=== PATIENT | male | born 1975 | race Two or more races ===

== ENCOUNTER 2025-03-02 10:17 | Outpatient (OUT) | payer BC, SELFPAY ==
--- NOTE | 2025-03-02 10:21 | ECG_ITS ---
The 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 Measurements Intervals [place] Rate: 61 P: 62 MD: 166 QRS: 39 QRSD: 97 T: 32 QT: 413 QTc: 419 Interpretive Statements SINUS RHYTHM Normal ECG Compared with the ECG of 04-04-2021 12:03, No significant changes Electronically Signed On 03-02-2025 18:44:18 EDT by GIOVANNI GALLAGHER M.D.
--- NOTE | 2025-03-02 11:34 | PM.PRESUREVA ---
History of Present Illness History of Present Illness Chief complaint: LEFT KIDNEY STONES Narrative: Patient presents for presurgical testing accompanied by his . Please see HPI from Dr. Osorio dated February 16, 2025. Review of Systems ROS Narrative Please see ROS from Dr. Osorio dated February 16, 2025. [facility] Medical History (Updated 03/02/25 @ 11:26 by María Elena Harris NP) Foot pain ?M79.673 - Pain in unspecified foot (ICD-10) Arthritis ?M19.90 - Unspecified osteoarthritis, unspecified site (ICD-10) Anxiety ?F41.9 - Anxiety disorder, unspecified (ICD-10) Migraine (1994) ?G43.909 - Migraine, unspecified, not intractable, without status migrainosus (ICD-10) Heartburn ?R12 - Heartburn (ICD-10) Hypertension (~2020) ?I10 - Essential (primary) hypertension (ICD-10) High cholesterol ?E78.00 - Pure hypercholesterolemia, unspecified (ICD-10) COVID-19 (2020) ?U07.1 - COVID-19 (ICD-10) Kidney stones ?N20.0 - Calculus of kidney (ICD-10) Surgical History (Updated 03/02/25 @ 11:25 by María Elena Harris NP) History of hernia repair (1998) ?Z98.890 - Other specified postprocedural states (ICD-10) ?Z87.19 - Personal history of other diseases of the digestive system (ICD-10) H/O chest tube placement (2020) ?Z98.890 - Other specified postprocedural states (ICD-10) History of colonoscopy ?Z98.890 - Other specified postprocedural states (ICD-10) S/P ureteral stent placement ?Z96.0 - Presence of urogenital implants (ICD-10) S/P cystoscopy ?Z98.890 - Other specified postprocedural states (ICD-10) History of cholecystectomy ?Z90.49 - Acquired absence of other specified parts of digestive tract (ICD-10) History of appendectomy ?Z90.49 - Acquired absence of other specified parts of digestive tract (ICD-10) Family History (Updated 03/02/25 @ 11:11 by María Elena Harris NP) Other Family history of diabetes mellitus Family history of hypertension Family history of stroke Social History (Updated 03/02/25 @ 11:03 by María Elena Harris NP) Within the past year, how often did you have a drink containing alcohol: never Score interpretation: A score less than 4 is consistent with normal alcohol consumption. Smoking status: Never smoker Non-prescribed substance use: denies use Previous occupational history: [employer] Highest level of school completed/degree received: high school graduate Meds Home Medications and Allergies Home Medications ?Medication ?Instructions ?Recorded ?Confirmed ?Type alprazolam 0.5 mg tablet 0.5 mg PO QID PRN anxiety 03/02/25 03/02/25 History aspirin 81 mg chewable tablet 1 tab PO DAILY 03/02/25 03/02/25 History atorvastatin 40 mg tablet 40 mg PO DAILY 03/02/25 03/02/25 History meloxicam 15 mg tablet 15 mg PO DAILY 03/02/25 03/02/25 History metoprolol tartrate 100 1 tab PO DAILY 03/02/25 03/02/25 History mg-hydrochlorothiazide 25 mg tablet potassium bicarbonate-citric acid 25 meq PO BID 03/02/25 03/02/25 History 25 mEq effervescent tablet (Effer-K) Allergies Allergy/AdvReac Type Severity Reaction Status Date / Time No Known Drug Allergies Allergy Verified 03/02/25 10:59 Exam Narrative Exam Narrative: Constitutional: Awake, alert, very pleasant, comfortable, well-appearing, nontoxic, interactive, vital signs as charted Head: Normocephalic, atraumatic Neck: Supple, normal appearance, normal range of motion, no meningeal signs, no lymphadenopathy Respiratory: No respiratory distress, breath sounds clear Cardiovascular: Regular rate and rhythm, strong and regular heart tones Abdomen: Nontender, normal bowel sounds, soft, no CVA tenderness Musculoskeletal: Normal gait, no swelling or edema Skin: No rashes or induration, no lesions, only visible skin inspected Neuro: No neurological deficits, normal sensation Psychiatric: Oriented ?3, normal affect Assessment and Plan Assessment and Plan (1) Kidney stones: Plan Left ESWL scheduled with Dr. Osorio March 08, 2025.
[2025-03-02 13:41] LABS: Anion Gap 12.7; Carbon Dioxide 29.2 mmol/L (21.0-32.0); Chloride 100 mmol/L (98-107); Estimated GFR (African America >60 (>=60 mL/min/1.73m^2); Estimated GFR (Non-African Ame >60 (>=60 mL/min/1.73m^2); Glucose 91 mg/dL (74-106); Potassium 3.9 mmol/L (3.5-5.1); Sodium 138 mmol/L (136-145)
[2025-03-02 13:49] LABS: Basophils Percent Auto 0.4 % (0.2-2.0); Eosinophils Absolute Auto 0.2 10^3/uL (0.0-0.7); Eosinophils Percent Auto 2.3 % (0.9-7.0); Hematocrit 43.8 % (42.0-54.0); Hemoglobin 14.8 g/dL (14.0-18.0); Immature Granulocytes Abs Auto 0.03 10^3/uL (0.00-0.03); Immature Granulocytes Pct Auto 0.3 % (0.0-0.5); Lymphocytes Absolute Auto 2.5 10^3/uL (1.2-3.8); Lymphocytes Percent Auto 26.3 % (20.5-60.0); Mean Corpuscular HGB Conc 33.8 g/dL (29.9-35.2); Mean Corpuscular Volume 85.9 fL (80.0-94.0); Mean Platelet Volume 10.6 fL (9.5-13.5); Monocytes Absolute Auto 0.8 10^3/uL (0.3-0.8); Monocytes Percent Auto 8.2 % (1.7-12.0); Neutrophils Percent Auto 62.5 % (43.0-75.0); Platelet Count 261 10^3/uL (150-450); Red Cell Distribution Width 13.2 % (11.0-15.0); White Blood Count 9.5 10^3/uL (4.0-11.0)
[2025-03-02 14:43] LABS: INR 1.05; Partial Thromboplastin Time 36.3 sec (22.3-36.2); Prothrombin Time 11.1 sec (9.0-11.6)
== END 2025-03-02 10:18 | disposition home or self-care (01) ==
LOC: PST 10:17
PROVIDERS: PCP Internal Medicine; Visit Provider Urology
DX: Z01.810 Encounter for preprocedural cardiovascular examination (principal); Z01.812 Encounter for preprocedural laboratory examination; Z01.818 Encounter for other preprocedural examination; N20.0 Calculus of kidney
CPT/HCPCS: 36415; 80048; 85025; 85610; 85730; 93005; G0463

== ENCOUNTER 2025-03-08 06:22 | Day surgery (SDC) | payer BC, SELFPAY ==
[2025-03-02 11:22] VITALS: BP 156/99; PULSE 64; TEMP 36.4; O2SAT 99; BMI 26.5
[2025-03-08] VITALS (8 sets, daily range): BP systolic 110–147; BP diastolic 73–109; PULSE 66–82; TEMP 36.1–36.4; O2SAT 94–98; BMI 26.2
--- NOTE | 2025-03-08 06:45 | XR_ITS ---
The [address] [address] Patient Name: IVANA GAMBLE MRN: [id number] date: 1975 Sex: M Assigned Patient Location: [facility] [[email or web address] Current Patient Location: [facility] [[email or web address]] Accession/Order Number: [id number] Exam Date: 03/08/2025 07:41 Report Date: 03/08/2025 07:42 At the request of: LAZ IBARRA MD Procedure: XR abdomen 1V XR abdomen 1V 03/08/2025 6:39 AM SIGNS AND SYMPTOMS: ^kidney stones \S.br\ PROTOCOL: Frontal radiographs of the abdomen and pelvis COMPARISON: 07/07/2019 FINDINGS: There is a 6 mm stone in the left renal collecting system similar to the prior exam. There is evidence of prior cholecystectomy. No ureteral or bladder stones are visualized. Mild degenerative changes are noted in the lumbar spine. XR/XR abdomen 1V IMPRESSION: There is a 6 mm stone in the left renal collecting system similar to the prior exam. Impression dictated by: Randolph Urrutia M.D. 03/08/2025 7:42 AM Dictation Location: [place] [address] Electronically authenticated by: [id number] Y Date: 03/08/2025 07:42
[2025-03-08] MEDS: LACTATED RINGER'S SOLUTION 1,000 ML 50 ML IV (07:12)
[2025-03-08] MEDS: CEFAZOLIN SODIUM 2 GM/50 ML D5W PREMIX IV (08:00)
--- NOTE | 2025-03-08 08:31 | PM.URSON ---
Urology Surgery Operative Note Operative Note Procedure Date: 03/08/25 Time Out Performed: yes Pre-op Diagnosis: 1. Left nephrolithiasis. 2. Microhematuria. Post-op Diagnosis: same as pre-op Procedures performed: 1. Left ESWL. 2. Cystoscopy. Anesthesia: General-LMA Primary Surgeon: Mamadou Osorio Complications: None Estimated blood loss (mL): 0 Findings: Left renal calculus. No bladder tumors. Specimens: None Drains: None Indications for Procedures: This gentleman has a 7 mm left renal calculus that is nonobstructing. He also has chronic microhematuria. He now presents for left ESWL and cystoscopy. He has signed an informed consent after all risks were explained. Some of these risks include bleeding, perinephric hematoma, infection and anesthesia to name a few. Detailed description of Procedure: The patient was brought to the Operating Room and placed on Siemens electromagnetic lithotripsy treatment table in the supine position. SCDs were placed on their lower extremities and turned on and functioning during the entire case. Timeout was done by all parties in the room. We all agreed upon the patient's identification and the planned procedures for this patient. General Anesthesia was then administered via LMA. Treatment head was then brought to the patient's correct side. While using flourscopy the stone was identified and lined up into the crosshairs. We also sterilely prepped and draped his genitalia. I started by passing a flexible cystoscope per urethra and into the bladder. Anterior urethra was normal. Prostatic urethra revealed bilobar hypertrophy. Careful panendoscopy in the bladder showed no evidence of any tumors, stones or lesions. No new findings were noted on retroflex. Clear urine was seen effluxing from the ureters. The scope was then removed. We then began applying shocks to the left renal stone at power level 2.0 and increased to a maximum power level 3.5. Intermittent fluoroscopy revealed that the stone fairly quickly began to fragment. After 800 shocks over 50% of the stone was fragmented. We applied a total of 1500 shocks. Our last fluoroscopic image revealed no evidence of formed stone remaining. The procedure was then terminated. He was then transferred to [facility] bed and wheeled to PACU in stable condition.
--- NOTE | 2025-03-08 08:58 | PC.NURSE ---
pink area with abrasions noted on left flank; no drainage noted
--- NOTE | 2025-03-08 09:55 | PC.NURSE ---
Up to bathroom and voided bloody urine without difficulty; urine strained and negative for calculi.
== END 2025-03-08 10:00 | disposition home or self-care (01) ==
PROVIDERS: PCP Internal Medicine; Visit Provider Urology
PROC: (CPT 00873; principal; 2025-03-08 08:00)
DX: N20.0 Calculus of kidney (principal); E78.5 Hyperlipidemia, unspecified; I10 Essential (primary) hypertension; R31.29 Other microscopic hematuria; Z90.49 Acquired absence of other specified parts of digestive tract; K21.9 Gastro-esophageal reflux disease without esophagitis
CPT/HCPCS: 00873; 00910; 50590; 52000; 36415; 74018; J0690; J1100; J1885; J2250; J2405; J2704; J3010

== ENCOUNTER 2025-08-31 10:05 | Outpatient (OUT) | payer BC, SELFPAY ==
--- OUTSIDE RECORDS SUMMARY | 2025-08-31 10:11 | XMS_ITS | Clinical Summary ---
Author Organization [facility] Address [address], [address] [place] [address] Care Team Providers Care Laboratory Asst Name Role Phone Jose Sharp MD Primary Care Provider [phone] Allergies No known active allergies Social History Tobacco UseTypesPacks/DayYears UsedDateSmoking Tobacco: NeverSex and Gender InformationValueDate RecordedSex Assigned at BirthNot on fileLegal SexMale 06/25/2021 10:27 PM EDTGender IdentityNot on fileSexual OrientationNot on file Last Filed Vital Signs Vital SignReadingTime TakenCommentsBlood Caarjapv766/7309 1:00 AM EDT Ioulr7699 1:00 AM TGIVqosycckqfh98.1 ??C (97 ??F)06/25/2021 10:37 PM EDT Respiratory Njkp7383 1:00 AM EDTOxygen Ywdtknatzk22%06/26/2021 1:00 AM EDTInhaled Oxygen Concentration--Weight--Height--Body Mass Index-- Plan of Treatment Not on file Insurance Care Teams Team MemberRelationshipSpecialtyStart DateEnd Date Jose Sharp MD [address] [facility] [address] [place] [address] PCP - GeneralInternal Medicine06/26/21
--- OUTSIDE RECORDS SUMMARY | 2025-08-31 10:11 | XMS_ITS | Clinical Summary ---
Author Organization [facility] Address [address] [place] [address] Care Team Providers Care Seismic Survey Assistant Name Role Phone Jose Sharp MD Unavailable [phone] Jose Sharp MD Primary Care Provider [phone] Allergies No known active allergies Medications MedicationSigDispense QuantityRefillsLast FilledStart DateEnd DateStatus Effer-K 25 MEQ effervescent tablet Take 25 mEq by mouth in the morning and 25 mEq before bedtime.4Active atorvastatin (Lipitor) 40 MG tablet Indications:Peripheral vascular disease,Mixed hyperlipidemiaTAKE 1 TABLET BY MOUTH EVERY DAY 100 tablet 5Active meloxicam (Mobic) 15 MG tablet Indications:Primary osteoarthritis involving multiple jointsTake 1 tablet (15 mg) by mouth Daily 30 tablet 5Active ALPRAZolam (Xanax) 0.5 MG tablet Indications:Anxiety,Anxiety about healthTake 0.5-1 tablets (0.25-0.5 mg) by mouth every 6 (six) hours if needed for anxiety 30 tablet 5Active metoprolol-hydroCHLOROthiazide (Lopressor HCT) 100-25 MG tablet Indications:Essential hypertensionTake 1 tablet by mouth in the morning. 100 tablet 5Active aspirin (Aspirin Low Dose) 81 MG chewable tablet Indications:Essential hypertensionChew 1 tablet (81 mg) Daily 100 tablet 5Active clotrimazole (Lotrimin) 1 % cream Indications:Tinea pedis, unspecified lateralityApply topically in the morning and before bedtime. 15 g 501/6Active Active Problems ProblemNoted DateDiagnosed DatePrimary osteoarthritis involving multiple joints 03/23/2025rthritis of first metatarsophalangeal (MTP) joint of right foot 08/18/2024cute right-sided low back pain with right-sided gltutlaa76/24/2023 Anxiety about xfkqxl5906/17/2023trial septal defect within oval fossa (HHS-HCC) 06/17/2023ell's palsy06/17/2023Headache, uobvbygxnee04/24/2023 Gisuaurnvvmhnhvcasqd44/24/5458Jhinuuzukqitdp24/24/2023Impaired fasting glucose 06/17/2023Internal zqjaaxxyiga82/24/2797Nrcnwsltmnfd12/24/5181Hppmyogk21/24/2023 Migraine without aura and without status migrainosus, not bmgozuvwzhz40/24/2023 Bjqvzpisxpcvskx47/24/2023OSA (obstructive sleep apnea)06/17/2023Other chronic pain06/17/2023anic /24/2023eripheral vascular owafdyk2506/17/2023ost- viral hxsjvoho42/24/2023Sequelae of other specified infectious and parasitic tcsjzrno58/24/2023Steatosis, liver06/17/2023White matter sihoyul0406/17/2023 Essential mrcdtbawmmmn31/23/2023Tension vwplyewxaoda30/27/2021 Resolved Problems ProblemNoted DateDiagnosed DateResolved DateHypertensive hrpoycq3906/07/2021 08/04/2024 Encounters DateTypeDepartmentCare HcgsBvrlrrhtzaa60/10/2025 11:00 AM EDTTreatment [facility] [address] [facility] [address] [place] [address] Maci Pike, PT Low back pain, unspecified back pain laterality, unspecified chronicity, unspecified whether sciatica present (Primary Dx)08/03/2025amboo flowsheet [facility] [address] [facility] [address] [place] [address] Maci Pike, PT 08/03/20257226Nytvxy33/30/2025Telephone [facility] [address] [facility] [address] [place] [address] Horacio Lewis MD 07/23/2025Refill [facility] [address] [place] [address] Jose Sharp MD Anxiety; Anxiety about mdorwr7607/23/2025bstract [facility] [address] [place] [address] Jose Sharp MD 07/20/2025 10:00 AM EDTOffice Visit [facility] [address] [place] [address] Jose Sharp MD 07/20/2025amboo flowsheet [facility] [address] [place] [address] Jose Sharp MD 07/20/20257473Mtjoom36/15/2025Orders Only [facility] [address] [place] [address] Jose Sharp MD Special screening for malignant neoplasm of prostate; Essential hypertension ; Mixed riuclmwzehqfis72/12/2025 9:30 AM EDTEvaluation [facility] [address] [place] [address] Maci Pike, PT Low back pain, unspecified back pain laterality, unspecified chronicity, unspecified whether sciatica present (Primary Dx)07/06/2025Plan of Care Documentation [facility] [address] [place] [address] 07/06/2025amboo flowsheet [facility] [address] [place] [address] Maci Pike, PT 07/06/20256315Fbecwd02/25/2025Telephone [facility] [address] [place] [address] Maci Pike, PT re: PT Eval Telephone [facility] [address] [facility] [address] [place] [phone] Jose Sharp MD from Last 3 Months Family History Medical HistoryRelationNameCommentsHypertensionMotherStrokeMotherRelationName StatusCommentsFatherDeceasedMotherDeceased Social History Tobacco UseTypesPacks/DayYears UsedDateSmoking Tobacco: NeverSmokeless Tobacco: Never Tobacco Cessation:Counseling Given: Not Answered Alcohol UseStandard Drinks/WeekCommentsNot Currently0 (1 standard drink = 0.6 oz pure alcohol)caffeine: sodaPHQ-2AnswerDate RecordedPatient Health Questionnaire- 2 Sxkpq864Sex and Gender InformationValueDate RecordedSex Assigned at BirthNot on fileLegal HhySiry3501/06/2023 7:12 PM EDTGender IdentityNot on file Sexual OrientationNot on file Last Filed Vital Signs Vital SignReadingTime TakenCommentsBlood Wumtajun546/7209 9:49 AM EDT Wygsd186407/20/2025 9:49 AM EDTTemperature--Respiratory Dmfk6043 11:30 AM EDTOxygen Dmriboqynu93%07/20/2025 9:49 AM EDTInhaled Oxygen Concentration-- Dutlko74.1 kg (170 lb)07/20/2025 9:49 AM GDMEgtwdt955.3 cm (5' 9 )07/20/2025 9:49 AM EDTBody Mass Index25. 9:49 AM EDT Plan of Treatment DateTypeDepartmentCare Team (Latest Contact Info)Cmanhrbaird13/20/2026 10:15 AM EDTOffice Visit [facility] [address] [facility] [address] [place] [phone] Jose Sharp MD [address] [facility] [address] [place] [phone] Health MaintenanceDue DateLast DoneCommentsCT Pqracuacmjby1976FIT-DNA 1975FIT1975FOBT1975 4997Ulnmyddqmdpfi1976Pneumococcal Vaccine: Pediatrics (0 to 5 Years) and At-Risk Patients (6 to 64 Years) (1 of 2 - PCV)1995COVID-19 Vaccine (1 - season)2025Influenza Vaccine (#1)4741Dhfwehldlkv96/03/15355110/27/2022, 08/27/2023olorectal Cancer Farjfkydj66/03/2033 Procedures Procedure NamePriorityDate/TimeAssociated DiagnosisCommentsCOMPREHENSIVE METABOLIC NGMXIOxakern94/19/2025 9:40 AM EDT Essential hypertension LIPID CNOPZLxaoeav28/19/2025 9:40 AM EDT Essential hypertension Mixed hyperlipidemia PSA, BTOTFYghfhku82/19/2025 9:40 AM EDT Special screening for malignant neoplasm of prostate HM ZPZOTWFFFZOAjrgjfp02/03/2023from Last 3 Months or Most Recently Relevant to Health Maintenance Results * PSA (07/13/2025 9:40 AM EDT)ComponentValueRef RangeTest MethodAnalysis Time Performed AtPathologist SignaturePSA, TOTAL1.31< OR = 4.00 ng/mLQUESTComment: The total PSA value from this assay system is standardized against the WHO standard. The test result will be approximately 20% lower when compared to the equimolar-standardized total PSA ([place]). Comparison of serial PSA results should be interpreted with this fact in mind. This test was performed using the Siemens chemiluminescent method. Values obtained from different assay methods cannot be used interchangeably. PSA levels, regardless of value, should not be interpreted as absolute evidence of the presence or absence of disease. Specimen (Source)Anatomical Location / LateralityCollection Method / Volume Collection TimeReceived TimeBloodVenous blood specimen / Kpeqato1207/13/2025 9:40 AM EDT07/13/2025 9:41 AM EDT Narrative [facility] - 07/14/2025 3:20 AM EDT FASTING:YES FASTING: YES Resulting Agency Comment Performing Organization Information ?Site ID: QPT ?Name: [facility] ?Address: [address] [place] [address], [address] [place] [phone] ?Director: Santhosh Chase MD Authorizing ProviderResult TypeResult Candelario MONTOYA BLOOD ORDERABLESFinal ResultPerforming OrganizationAddressCity/State/ZIP CodePhone Number [facility] * (ABNORMAL) Lipid panel (07/13/2025 9:40 AM EDT)ComponentValueRef RangeTest MethodAnalysis TimePerformed AtPathologist SignatureCHOLESTEROL, JUMFR280<200 mg/dLQUESTHDL RIZAOUWXWMT07(L)> OR = 40 mg/fTKSOUZJXNXVGOTMNNJS145(H)<150 mg/dLQUESTLDL LUVJKTDYKKD26vh/dL (calc)QUESTComment: Reference range: <100 Desirable range <100 mg/dL for primary prevention; <70 mg/dL for patients with CHD or diabetic patients with > or = 2 CHD risk factors. LDL-C is now calculated using the Nikki calculation, which is a validated novel method providing better accuracy than the Friedewald equation in the estimation of LDL-C. Jose CADET et al. NIKOLAI. 2013;310(19): 0488-4732 (http://education.[employer]/faq/XDO777) CHOL/HDLC RATIO3.8<5.0 (calc)QUESTNON HDL DEEPMXYSSPY80<130 mg/dL (calc)[facility] Comment: For patients with diabetes plus 1 major ASCVD risk factor, treating to a non-HDL-C goal of <100 mg/dL (LDL-C of <70 mg/dL) is considered a therapeutic option. Specimen (Source)Anatomical Location / LateralityCollection Method / Volume Collection TimeReceived TimeBloodVenous blood specimen / Bzpzwjr2507/13/2025 9:40 AM EDT07/13/2025 9:41 AM EDT Narrative [facility] - 07/14/2025 3:20 AM EDT FASTING:YES FASTING: YES Resulting Agency Comment Performing Organization Information ?Site ID: QPT ?Name: [facility] ?Address: [address] [place] [address], [address] [place] [phone] ?Director: Santhosh Chase MD Authorizing ProviderResult TypeResult Candelario MONTOYA BLOOD ORDERABLESFinal ResultPerforming OrganizationAddressCity/State/ZIP CodePhone Number [facility] * (ABNORMAL) Comprehensive metabolic panel (07/13/2025 9:40 AM EDT)Component ValueRef RangeTest MethodAnalysis TimePerformed AtPathologist SignatureGlucose 101(H)65 - 99 mg/dLQUESTComment: ? Fasting reference interval For someone without known diabetes, a glucose value between 100 and 125 mg/dL is consistent with prediabetes and should be confirmed with a follow-up test. BZB459 - 25 mg/dLQUESTCreatinine0.620.60 - 1.29 mg/mGWSHFTZZOT013> OR = 60 mL/min/1.10o6RHUULKNB/CREATININE RATIOSEE NOTE: (calc)QUESTComment: ?? Not Reported: BUN and Creatinine are within ?? reference range. ? Mwqvsm701780 - 146 mmol/LQUESTPotassium, Bld3.83.5 - 5.3 mmol/KBQZAQTgfqznwj609 98 - 110 mmol/LQUESTCarbon Evyvjpf8931 - 32 mmol/LQUESTCalcium8.98.6 - 10.3 mg/dLQUESTPROTEIN, TOTAL7.06.1 - 8.1 g/dLQUESTALBUMIN4.93.6 - 5.1 g/dLQUEST GLOBULIN2.11.9 - 3.7 g/dL (calc)QUESTALBUMIN/GLOBULIN RATIO2.31.0 - 2.5 (calc) QUESTBILIRUBIN, TOTAL0.70.2 - 1.2 mg/dLQUESTALKALINE TQHFPBYRMWH4504 - 130 U/L ASMHPVSB0098 - 40 U/JJYWKZFMG258 - 46 U/LQUESTSpecimen (Source)Anatomical Location / LateralityCollection Method / VolumeCollection TimeReceived TimeBlood Venous blood specimen / Kjghswt1807/13/2025 9:40 AM EDT07/13/2025 9:41 AM EDT Narrative [facility] - 07/14/2025 3:20 AM EDT FASTING:YES FASTING: YES Resulting Agency Comment Performing Organization Information ?Site ID: QPT ?Name: [facility] ?Address: [address] [place] [address], [address] [place] [phone] ?Director: Santhosh Chase MD Authorizing ProviderResult TypeResult StatusDairis Sharp MDLAB BLOOD ORDERABLESFinal ResultPerforming OrganizationAddressCity/State/ZIP CodePhone Number [facility] * (ABNORMAL) Colonoscopy (08/27/2023)Anatomical RegionLateralityModalityOther Specimen (Source)Anatomical Location / LateralityCollection Method / Volume Collection TimeReceived Time08/27/2023 Narrative Authorizing ProviderResult TypeResult StatusJose Sharp MDHEALTH MAINTENANCE Final Result from Last 3 Months or Most Recently Relevant to Health Maintenance Insurance Care Teams Team MemberRelationshipSpecialtyStart DateEnd Date Jose Sharp MD [address] [place] [address] PCP - [facility]01/23/21 Jose Sharp MD [address] [place] [address] PCP - GeneralInternal Medicine03/02/23
--- OUTSIDE RECORDS SUMMARY | 2025-08-31 10:11 | XMS_ITS | Clinical Summary ---
Author Organization [facility] Address [address] [place] [address] Care Team Providers Care Microbiology Coordinator Name Role Phone Unavailable Primary Care Provider Unavailabl e Social History Tobacco UseTypesPacks/DayYears UsedDateSmoking Tobacco: Never AssessedUT Safety & EnvironmentAnswerDate RecordedFear of Current or Ex-PartnerNot on file 12/16/2023Emotionally AbusedNot on file12/16/2023hysically AbusedNot on file 12/16/2023Sexually AbusedNot on file4Physically or Sexually AbusedNot on file12/16/2023Sex and Gender InformationValueDate RecordedSex Assigned at BirthNot on fileLegal PhkRrcs6104/23/2022 12:38 AM EDTGender IdentityNot on file Sexual OrientationNot on file Plan of Treatment Health MaintenanceDue DateLast DoneCommentsCT Mjsmynncpmnl1976Colonoscopy 1976Colorectal Cancer Lgzxrzyeo1976FIT-DNA1976FIT1976 FOBT1976 7599Bpmjkifjsmisv1976Depression Snuqbivua52/16/1988Hepatitis B Vaccines (1 of 3 - 19+ 3-dose series)1995Adult Jlahfxf3307/10/1998Influenza Vaccine (#1)2025Zoster Vaccines (1 of 2)2026HIB VaccinesAged OutNo longer eligible based on patient's age to complete this topicHPV VaccinesAged OutNo longer eligible based on patient's age to complete this topicIPV Vaccines Aged OutNo longer eligible based on patient's age to complete this topic Meningococcal B VaccineAged OutNo longer eligible based on patient's age to complete this topicMeningococcal VaccineAged OutNo longer eligible based on patient's age to complete this topicPneumococcal Vaccine: Pediatrics (0 to 5 Years) and At-Risk Patients (6 to 64 Years)Aged OutNo longer eligible based on patient's age to complete this topicRotavirus VaccinesAged OutNo longer eligible based on patient's age to complete this topic Insurance
--- OUTSIDE RECORDS SUMMARY | 2025-08-31 10:11 | XMS_ITS | Clinical Summary ---
Author Organization Spirations tem Address [id number] [address] [place] [address] Care Team Providers Care Sql Programmer Name Role Phone Jose Sharp MD Primary Care Provider [phone] Allergies No known active allergies Medications MedicationSigDispense QuantityRefillsLast FilledStart DateEnd DateStatus naproxen (NAPROSYN) 500 mg tablet Take 500 mg by mouth 2 (two) times a day with meals.Active hyoscyamine (LEVSIN) 0.125 mg SL tablet Take 0.125 mg by mouth every 4 (four) hours as needed for cramping.Active metoprolol ta-hydroCHLOROthiaz (LOPRESSOR HCT) 100-25 mg per tablet Take 1 tablet by mouth in the morning.Active atorvastatin (LIPITOR) 40 mg tablet Take 40 mg by mouth in the morning.Active aspirin 81 mg Take 81 mg by mouth in the morning.Active carvediloL (COREG) 25 mg tablet Take 1 tablet (25 mg total) by mouth 2 (two) times a day. 60 tablet 06/07/2021ctive atorvastatin (LIPITOR) 40 mg tablet Take 1 tablet (40 mg total) by mouth daily. 30 tablet 06/07/2021ctive aspirin 81 mg chewable tablet Chew 1 tablet (81 mg total) and swallow daily. 30 tablet 06/07/2021ctive lisinopriL (PRINIVIL,ZESTRIL) 20 mg tablet Take 20 mg by mouth daily. Active cloNIDine (CATAPRES) 0.2 mg tablet Take 0.2 mg by mouth as needed for high blood pressure.Active Active Problems ProblemNoted DateDiagnosed DateHypertensive lkdwdqs4706/07/2021Tension szmvmegcxgmw37/27/2021 Immunizations No known immunizations Family History Medical HistoryRelationNameCommentsDiabetesMotherHypertensionMotherStrokeMother RelationNameStatusCommentsFatherDeceasedCARDIOMEGALYMotherDeceased Social History Tobacco UseTypesPacks/DayYears UsedDateSmoking Tobacco: NeverSmokeless Tobacco: Never Tobacco Cessation:Counseling Given: No Alcohol UseStandard Drinks/WeekCommentsYes0 (1 standard drink = 0.6 oz pure alcohol)rareSocial Connection and Isolation PanelAnswerDate RecordedIn a typical week, how many times do you talk on the phone with family, friends, or neighbors?More than three times a week04/20/2021How often do you get together with friends or relatives?More than three times a week04/20/2021How often do you attend tenriism or faith services?Never04/20/2021o you belong to any clubs or organizations such as tenriism groups, unions, fraternal or athletic groups, or school groups?No04/20/2021How often do you attend meetings of the clubs or organizations you belong to?Never04/20/2021re you , , , , never , or living with a partner?Broiwkz2704/20/2021UDIT-C AnswerDate RecordedQ1: How often do you have a drink containing alcohol?Monthly or less04/20/2021Q2: How many drinks containing alcohol do you have on a typical day when you are drinking?1 or Q3: How often do you have six or more drinks on one occasion?Never04/20/2021Overall Financial Resource Strain (CARDIA) AnswerDate RecordedHow hard is it for you to pay for the very basics like food, housing, medical care, and heating?Not hard at all04/20/2021HQ-2AnswerDate RecordedTotal [facility]264[facility] [place] [facility] - Occupational Stress QuestionnaireAnswerDate RecordedDo you feel stress - tense, restless, nervous, or anxious, or unable to sleep at night because yourmind is troubled all the time - these days?Not at all04/20/2021xercise Vital SignAnswer Date RecordedOn average, how many days per week do you engage in moderate to strenuous exercise (like a brisk walk)?5 days04/20/2021On average, how many minutes do you engage in exercise at this level?60 min04/20/2021RAPARE - TransportationAnswerDate RecordedIn the past 12 months, has lack of transportation kept you from medical appointments or from getting medications?No 04/20/2021In the past 12 months, has lack of transportation kept you from meetings, work, or from getting things needed for daily living?No04/20/2021 ChildcareAnswerDate RecordedDo problems getting child development assistant make it difficult for you to work or study?No04/20/2021mploymentAnswerDate RecordedDo you need help finding a local career center and/or a training program?No04/20/2021urpose - LifeAnswerDate RecordedPurpose and direction in scwzZomsjif86/11/2021ex and Gender InformationValueDate RecordedSex Assigned at BirthNot on fileLegal Sex Male04/19/2021 5:57 PM EDTGender IdentityNot on fileSexual OrientationNot on file Last Filed Vital Signs Vital SignReadingTime TakenCommentsBlood Eqbkotzt494/4095307/04/2022 8:43 PM EDT Izchz758507/04/2022 8:43 PM ACDLelruftwcym38.9 ??C (98.4 ??F)07/04/2022 7:25 PM EDTRespiratory Cgdj3969 8:43 PM EDTOxygen Xydoaebpiy21%07/04/2022 8:43 PM EDTInhaled Oxygen Concentration--Pmmede52.8 kg (165 lb)07/04/2022 7:25 PM EDT Mqlyni486.2 cm (5' 7 )07/04/2022 7:25 PM EDTBody Mass Index25.8407/04/2022 7:25 PM EDT Plan of Treatment Health MaintenanceDue DateLast DoneCommentsDepression Mqpkkmwui73/16/1988Tobacco Lcvfbfnea47/16/1988Adult BMI Wqkluyrdg57/16/1994DTaP,Tdap and Td Vaccines (1 - Tdap)1995Influenza Eqjmjlw0506/25/2025 Medical Devices Not on file Insurance Advance Directives * Full Code (Latest Code Status on File) Date ActivatedDate InactivatedComments06/07/2021 12:05 PM06/07/2021 3:40 PM * Full Code Date ActivatedDate InactivatedComments04/20/2021 12:58 AM04/26/2021 9:26 PM Care Teams Team MemberRelationshipSpecialtyStart DateEnd Date Jose Sharp MD [address] [facility], [facility] [address] [place] [id number] PCP - GeneralInternal Medicine04/19/21
--- NOTE | 2025-08-31 10:13 | XR_ITS ---
The [address] [address] Patient Name: IVANA GAMBLE MRN: [id number] date: 1975 Sex: M Assigned Patient Location: RAD Current Patient Location: RAD Accession/Order Number: [id number] Exam Date: 08/31/2025 10:15 Report Date: 08/31/2025 10:47 At the request of: LAZ IBARRA MD Procedure: XR abdomen 1V SINGLE VIEW ABDOMEN COMPARISON: 03/08/2025 CLINICAL DATA: Follow-up of kidney stones. Supine views of the abdomen and pelvis were obtained. There is air and stool within the colon from the cecum through the splenic flexure. There are no dilated small bowel loops. The kidneys are partially obscured. The radiopaque stone seen at the left kidney at the time of the prior is no longer identified. No new renal or ureteral stones are noted. There are no soft tissue masses. There is subtle levoscoliotic curvature and mild degenerative change at the spine. XR/XR abdomen 1V IMPRESSION: NO RESIDUAL RADIOPAQUE STONES. Impression dictated by: Ashley Gonzalez M.D. 08/31/2025 10:47 AM Dictation Location: [place] [address] Electronically authenticated by: [id number] Date: 08/31/2025 10:47
== END 2025-08-31 10:06 | disposition home or self-care (01) ==
LOC: RAD 10:07
PROVIDERS: PCP Internal Medicine; Visit Provider Urology
DX: N20.0 Calculus of kidney (principal)
CPT/HCPCS: 74018

== ENCOUNTER 2025-10-20 11:34 | Emergency (ER) | payer BC, SELFPAY ==
--- OUTSIDE RECORDS SUMMARY | 2025-10-18 20:25 | XMS_ITS | Encounter Summary ---
Author Organization [facility] tem Address [id number] [place] [address] Care Team Providers Care Wire Wrapper Machine Operator Name Role Phone Jose Sharp MD Primary Care Provider [phone] Reason for Visit * ReasonCommentsLeg Pain Encounter Details DateTypeDepartmentCare Team (Latest Contact Info)Rqnbafmqgoo78/25/2025 8:25 PM EST - 10/18/2025 10:39 PM [facility] - Emergency [address] [place] [id number] Carl Carrillo MD [address] [place] [address] Sciatica, unspecified laterality (Primary Dx) Discharge Disposition: Home Social History Tobacco UseTypesPacks/DayYears UsedDateSmoking Tobacco: NeverSmokeless Tobacco: NeverAlcohol UseStandard Drinks/WeekCommentsYes0 (1 standard drink = 0.6 oz pure alcohol)rareSocial Connection and Isolation PanelAnswerDate RecordedIn a typical week, how many times do you talk on the phone with family, friends, or neighbors?More than three times a week04/20/2021How often do you get together with friends or relatives?More than three times a week04/20/2021How often do you attend temple or adventism services?Never1Do you belong to any clubs or organizations such as temple groups, unions, fraternal or athletic groups, or school groups?No04/20/2021How often do you attend meetings of the clubs or organizations you belong to?Never04/20/2021re you , , , , never , or living with a partner?Dnbrljz7304/20/2021UDIT-C AnswerDate RecordedQ1: How often do you have [...] care, and heating?Not hard at all04/20/2021HQ-2AnswerDate RecordedTotal Gfvso893Finst. [facility] [place] of [facility] - Occupational Stress QuestionnaireAnswerDate [...] daily living?No04/20/2021 ChildcareAnswerDate RecordedDo problems getting child care centre director make it difficult for you to work or study?No04/20/2021mploymentAnswerDate RecordedDo you need help finding a local career center and/or a training program?No04/20/2021Hunger ScreeningAnswerDate RecordedWithin the past 12 months we worried whether our food would run out before we got money to buy more.Never True10/18/2025Within the past 12 months the food we bought just didn't last and we didn't have money to get more.Never True10/18/2025Purpose - LifeAnswerDate RecordedPurpose and direction in pisdTmvleji10/11/2021ex and Gender InformationValueDate Recorded Sex Assigned at BirthNot on fileLegal CehFocb9404/19/2021 5:57 PM EDTGender IdentityNot on fileSexual OrientationNot on filedocumented as of this encounter Last Filed Vital Signs Vital SignReadingTime TakenCommentsBlood Ufbymtee883/6610/18/2025 9:23 PM EST Wmxtc900010/18/2025 10:00 PM UNJIfsrhsoiwev66.6 ??C (97.9 ??F)10/18/2025 8:28 PM ESTRespiratory Pflj444012/19/2024 10:00 PM ESTOxygen Mcquynewdx58%10/18/2025 10:00 PM ESTInhaled Oxygen Concentration--Nqwxyz82.8 kg (165 lb)10/18/2025 8:28 PM EST Khemcz616.3 cm (5' 9 )10/18/2025 8:28 PM ESTBody Mass Index24.37112/19/2024 8:28 PM ESTdocumented in this encounter Functional Status * Airway/Breathing (Pre-Arrival)QuestionAnswerDate of AssessmentAuthorBreathing HdwgogDiajteepeup08/25/2025 8:25 PM Laurence Barajas RN * Vital SignsQuestionAnswerDate of StqjjcfuwmLlqmupJlzlo0393/25/2025 10:00 PM Laurence Barajas RNResp16112/19/2024 10:00 PM Laurence Barajas, TABATHApO2 9410/18/2025 10:00 PM Laurence Barajas RN * ED Hunger ScreeningQuestionAnswerDate of AssessmentAuthorWithin the past 12 months the food we bought just didn't last and we didn't have money to get more.Never True10/18/2025 8:27 PM Laurence Barajas RNWithin the past 12 months we worried whether our food would run out before we got money to buy more.Never True10/18/2025 8:27 PM Laurence Barajas RN * BEE (kcal)AnswerDate of RkzpzqymibDrdumi426848/25/2025 8:28 PM Laurence Barajas RN * Pain AssessmentQuestionAnswerDate of AssessmentAuthorPain Intervention(s) Medication (See MAR)10/18/2025 9:00 PM Laurence Barajas RNPain Location Hip;Leg10/18/2025 9:00 PM Laurence Barajas RNPain OrientationRight 10/18/2025 9:00 PM Laurence Barajas RNPain DescriptorsSharp;Numbness 10/18/2025 9:00 PM Laurence Barajas RNPain YxhfpPmzebfg56/25/2025 9:00 PM Laurence Barajas RNPain DurationConstant/blthbclaub60/25/2025 9:00 PM Laurence Andrews RNPatient's Stated Acceptable Pain LevelNo pain10/18/2025 9:00 PM Laurence Barajas RNResponse to InterventionsPain improved 10/18/2025 9:00 PM Laurence Barajas RNPain TypeAcute pain10/18/2025 9:00 PM Laurence Barajas RNClinical ProgressionGradually ujqflargi16/25/2025 9:00 PM Laurence Barajas RNPain Assessment0-10112/19/2024 9:00 PM Laurence Andrews RNPain Aettq97712/19/2024 9:00 PM Laurence Barajas RN Observed WqwpfuepPlbcimx90/25/2025 9:00 PM Laurence Barajas RN * [place] Coma ScaleQuestionAnswerDate of AssessmentAuthorEye Sdmjzdk099/25/2025 9:01 PM Laurence Barajas RNBest Motor Cjesfjoz635/25/2025 9:01 PM Laurence Andrews RNBest Verbal Dcdyvpwh194/25/2025 9:01 PM Laurence Barajas RNGlasgow Coma Scale Lrfri0663/25/2025 9:01 PM Laurence Barajas RN * Patient ObservationQuestionAnswerDate of ShezzyjjupGjpzyuTbmayb1851/25/2025 8:28 PM Laurence Barajas RNWeight264012 8:28 PM Laurence Barajas RN * BSA (Calculated - sq m)AnswerDate of AssessmentAuthor1.9112 8:28 PM Laurence Barajas RN * BMI (Calculated)AnswerDate of IpkjbfkqliLeuelv67.412 8:28 PM Laurence Andrews RN * Height and WeightQuestionAnswerDate of AssessmentAutMercy Health [facility] Regional Medical Centert MethodStated 10/18/2025 8:28 PM Laurence Barajas RN * Abuse Indicator ScreeningQuestionAnswerDate of AssessmentAuthorSafe in HomeYes 10/18/2025 8:27 PM Laurence Barajas RNDo you feel safe in your relationship(s)?Yes10/18/2025 8:27 PM Laurence Barajas RNAre you in immediate danger?No10/18/2025 8:27 PM Laurence Barajas RN * Harm Risk AssessmentQuestionAnswerDate of AssessmentAuthorAre you having thoughts of homicide or causing harm to others?No10/18/2025 8:26 PM Laurence Andrews RN * Blood HistoryQuestionAnswerDate of AssessmentAuthorHave you had a blood transfusion?No10/18/2025 8:27 PM Laurence Barajas RNWould you accept a blood transfusion in a life-threatening situation?Yes10/18/2025 8:27 PM Laurence Andrews RN * Fall Prevention Screening 18-64 yearsQuestionAnswerDate of AssessmentAuthorIs Patient Alert, Oriented and Able to Follow JuioxsxgWvq91/25/2025 8:27 PM Laurence Andrews RNFall Prevention ScreenDoes Not Apply to Patient - Screening Uhwltynz11/25/2025 8:27 PM Laurence Barajas RN * Vital SignsQuestionAnswerDate of DtpgkikgxhSbghmgJV536/6610/18/2025 9:23 PM Laurence Barajas RNTemp97.9112/19/2024 8:28 PM Laurence Barajas RN Temp tkkWsiv0310/18/2025 8:28 PM Laurence Barajas RNHeart Rate SourcePulse Ox10/18/2025 9:23 PM Laurence Barajas RNBP LocationLeft arm10/18/2025 9:23 PM Laurence Barajas RNBP CfilugNjctjyzbe41/25/2025 9:23 PM Laurence Andrews, RNPatient QdfiwaneRnhxfet16/25/2025 9:23 PM Laurence Barajas RN * Oxygen TherapyQuestionAnswerDate of AssessmentAuthorPulse Ox Monitoring Lvrpduucaa57/25/2025 9:23 PM Laurence Barajas RNO2 DeviceNone (Room air) 10/18/2025 9:23 PM Laurence Barajas RN * Adult Sepsis RiskQuestionAnswerDate of AssessmentAuthorSIRS Criteria0 10/18/2025 10:20 PM ESTEduardground, ClindocRisk of Sepsis v.20.6112/19/2024 10:21 PM ESTBackground, Clindoc * AirwayQuestionAnswerDate of AssessmentAuthorAirway (WDL)WD12/19/2024 8:26 PM Laurence Barajas RN * BreathingQuestionAnswerDate of AssessmentAuthorBreathing (WDL)WD12/19/2024 8:26 PM Laurence Barajas RN * CirculationQuestionAnswerDate of AssessmentAuthorCirculation (WDL)WDL 10/18/2025 8:26 PM Laurence Barajas RN * DisabilityQuestionAnswerDate of AssessmentAuthorDisability (WDL)WD12/19/2024 8:26 PM Laurence Barajas RN * Influenza Vaccine Screen - July Through DecemberQuestionAnswerDate of AssessmentAuthorInfluenza Vaccine Contraindications/RefusedPatient or agent declines/refuses qfjihih5010/18/2025 8:27 PM Laurence Barajas RNHave you had an influenza vaccine this season?No10/18/2025 8:27 PM Laurence Barajas RN * Family/Powdered Metal Supervisor NotifiedQuestionAnswerDate of AssessmentAuthor Family/Powdered Metal Supervisor notified of Emergency Department Admission?Patient notified family/rfenmwnsptgpxg39/25/2025 8:25 PM Laurence Barajas RN * Weight in (lb) to have BMI = 25AnswerDate of SxfvvsdskcJbntot926.9112/19/2024 8:28 PM Laurence Barajas RN * [place] Suicide BehaviorQuestionAnswerDate of AssessmentAuthor6. Have you ever done anything, started to do anything, or prepared to do anything to end your life?No10/18/2025 8:26 PM Laurence Barajas RN * Suicidal Ideation (Last Month)QuestionAnswerDate of AssessmentAuthor1. In the last month have you wished you were or wished you could go to sleep and not wake up?No10/18/2025 8:26 PM Laurence Barajas RN2. In the last month have you actually had any thoughts of killing yourself?No10/18/2025 8:26 PM Laurence Barajas RNAble to assess?Yes10/18/2025 8:26 PM Laurence Barajas RN * MusculoskeletalQuestionAnswerDate of AssessmentAuthorMusculoskeletal (WDL)X 10/18/2025 8:44 PM Laurence Barajas RN * Vitals TimerQuestionAnswerDate of AssessmentAuthorRestart Vitals TimerYes 10/18/2025 9:23 PM Laurence Barajas RNRestart Vitals GsurwIku12/25/2025 9:23 PM Laurence Barajas RN * TB ScreeningQuestionAnswerDate of AssessmentAuthorPatient has prolonged cough? No10/18/2025 8:27 PM Laurence Barajas RNPatient has bloody cough?No 10/18/2025 8:27 PM Laurence Barajas RNPatient has fever?No10/18/2025 8:27 PM Laurence Barajas RNPatient has night sweats?No10/18/2025 8:27 PM Laurence Andrews RNPatient has weight loss?No10/18/2025 8:27 PM Laurence Barajas RNPatient has positive PPD?No10/18/2025 8:27 PM Laurence Barajas RN * [place] Suicide Risk LevelAnswerDate of AssessmentAuthorNot at Suicide Risk 10/18/2025 8:26 PM Laurence Barajas RN * Vital SignsQuestionAnswerDate of QpzbcyrxpxIvpwazXthkc6996/25/2025 10:00 PM Laurence Barajas RNResp16112/19/2024 10:00 PM Laurence Barajas RNSpO2 9410/18/2025 10:00 PM Laurence Barajas RN * BEE (kcal)AnswerDate of OatdpxpobuJmymcg678303/25/2025 8:28 PM Laurence Barajas RN * Patient ObservationQuestionAnswerDate of PguvqczyboFiqdwiMavqkn4885/25/2025 8:28 PM Laurence Barajas RNWeight2640112/19/2024 8:28 PM Laurence Barajas RN * BSA (Calculated - sq m)AnswerDate of AssessmentAuthor1.9110/18/2025 8:28 PM Laurence Barajas RN * BMI (Calculated)AnswerDate of EaiflhhtmxUivlvg94.412 8:28 PM Laurence Andrews RN * Height and WeightQuestionAnswerDate of AssessmentAuthoeit MethodStated 10/18/2025 8:28 PM Laurence Barajas RN * Vital SignsQuestionAnswerDate of ZxxpopwnxmYbcbsaVL144/6610/18/2025 9:23 PM Laurence Barajas RNTemp97.9112/19/2024 8:28 PM Laurence Barajas RN Temp hmbDkgq2310/18/2025 8:28 PM Laurence Barajas RNHeart Rate SourcePulse Ox10/18/2025 9:23 PM Laurence Barajas RNBP LocationLeft arm10/18/2025 9:23 PM Laurence Barajas RNBP OzvqylApwukwubc41/25/2025 9:23 PM Laurence Andrews RNPatient RcbovlozLuyxhjq69/25/2025 9:23 PM Laurence Barajas RN * Weight in (lb) to have BMI = 25AnswerDate of PuaxwccwlhZmxtfe800.9112/19/2024 8:28 PM Laurence Barajas RN documented as of this encounter Mental Status * Vital SignsQuestionAnswerEntry NuweDpsovlShtug8739/25/2025 10:00 PM Laurence Andrews RNResp16112/19/2024 10:00 PM Laurence Barajas RNSpO294 10/18/2025 10:00 PM Laurence Barajas RN * Pain AssessmentQuestionAnswerEntry DateAuthorPain LocationHip;Leg10/18/2025 9:00 PM Laurence Barajas RNPain RoinabgpxehViwis88/25/2025 9:00 PM Laurence Andrews RNPain DescriptorsSharp;Pssmehke91/25/2025 9:00 PM Laurence Andrews RNPain DurationConstant/hvvtxtoohb45/25/2025 9:00 PM Laurence Andrews RNPatient's Stated Acceptable Pain LevelNo pain10/18/2025 9:00 PM Laurence Barajas RNResponse to InterventionsPain improved 10/18/2025 9:00 PM Laurence Barajas RNPain Assessment0-10112/19/2024 9:00 PM Laurence Barajas RNPain Slfqg26212/19/2024 9:00 PM Laurence Barajas RNObserved NqbyqnbxLobqymi01/25/2025 9:00 PM Laurence Barajas RN * Lamont Coma ScaleQuestionAnswerEntry DateAuthorEye Udqyngr539/25/2025 9:01 PM Laurence Barajas RNBest Motor Abzhbaut510/25/2025 9:01 PM Laurence Barajas RNBest Verbal Bqkyhmde417/25/2025 9:01 PM Laurence Barajas RN Lamont Coma Scale Ssqkd2092/25/2025 9:01 PM Laurence Barajas RN * Vital SignsQuestionAnswerEntry SqqzLjxthiNE587/6610/18/2025 9:23 PM Laurence Andrews RNTemp97.9112/19/2024 8:28 PM Laurence Barajas RNTemp gtdKwtx1310/18/2025 8:28 PM Laurence Barajas RNHeart Rate SourcePulse Ox 10/18/2025 9:23 PM Laurence Barajas RNBP LocationLeft arm10/18/2025 9:23 PM Laurence Barajas RNBP KbexhvDcfbwpsvm11/25/2025 9:23 PM Laurence Barajas, RNPatient DubeydtqOifbxiy99/25/2025 9:23 PM Laurence Barajas RN * Oxygen TherapyQuestionAnswerEntry DateAuthorO2 DeviceNone (Room air)10/18/2025 9:23 PM Laurence Barajas RN documented in this encounter Discharge Instructions * Discharge Instructions* Sarah Dodge APRN-NOTCHED BLADE LOADER - 10/18/2025 8:49 PM EST Thank you for choosing us for your medical care. We know you have a choice, and we appreciate you choosing us for your medical concerns! You may receive a survey from the hospital about your visit. We very much appreciate your comments and concerns. Please read all medication insert instructions and side effects when dispensed by the pharmacy. Every medication has side effects, and you may experience any of them. Please call the emergency room with any questions or concerns you have. Please call your doctor for outpatient follow up and recommendations. The emergency room cannot replace ongoing care, and it is important for your personal physician to evaluate you and monitor your health. Return to the ER for increased pain, fever > 101.5, vomiting twice, or any concern you deem emergent. Sarah Dodge CNP * Attachments The following attachments cannot be sent through Care Everywhere. * Sciatica ED (Ugandan) documented in this encounter Medications at Time of Discharge MedicationSigDispense QuantityRefillsLast FilledStart DateEnd Date aspirin 81 mg chewable tablet Chew 1 tablet (81 mg total) and swallow daily. 30 tablet 06/07/2021 aspirin 81 mg Take 81 mg by mouth in the morning. atorvastatin (LIPITOR) 40 mg tablet Take 40 mg by mouth in the morning. atorvastatin (LIPITOR) 40 mg tablet Take 1 tablet (40 mg total) by mouth daily. 30 tablet 06/07/2021 carvediloL (COREG) 25 mg tablet Take 1 tablet (25 mg total) by mouth 2 (two) times a day. 60 tablet 06/07/2021 cloNIDine (CATAPRES) 0.2 mg tablet Take 0.2 mg by mouth as needed for high blood pressure. hyoscyamine (LEVSIN) 0.125 mg SL tablet Take 0.125 mg by mouth every 4 (four) hours as needed for cramping. ketorolac (TORADOL) 10 mg tablet Take 1 tablet (10 mg total) by mouth every 6 (six) hours as needed for pain. 20 tablet 10/18/2025 lisinopriL (PRINIVIL,ZESTRIL) 20 mg tablet Take 20 mg by mouth daily. methylPREDNISolone (MEDROL, PAVEL,) 4 mg tablet follow package directions 21 tablet 10/18/2025 metoprolol ta-hydroCHLOROthiaz (LOPRESSOR HCT) 100-25 mg per tablet Take 1 tablet by mouth in the morning. naproxen (NAPROSYN) 500 mg tablet Take 500 mg by mouth 2 (two) times a day with meals. orphenadrine (NORFLEX) 100 mg 12 hr tablet Take 1 tablet (100 mg total) by mouth 2 (two) times a day as needed for muscle spasms or pain. 14 tablet 10/18/2025documented as of this encounter ED Notes * Sarah Dodge, OPERATIONS ENGINEER-NOTCHED BLADE LOADER - 10/18/2025 8:27 PM EST Images from the original note were not included. [facility] - EMERGENCY Pt Name: Paul Loya Birthdate: 1975 Chief Complaint: Chief Complaint Patient presents with Leg Pain History of Present Illness: Patient is a 50-year-old male that presents to the ED with complaint of right lower back/hip pain. Patient has a history of sciatica. States he was playing games and crawling on the floor for Romulo yesterday. Today he is reporting right-sided lower back that radiates into his hip. EMS gave the patient 50 of fentanyl along with Zofran. He states the pain is better but still there. Denies any loss of bowel or bladder. History provided by: Patient videotape operator used: No Past Medical History: Past Medical History: Diagnosis Date COVID-19 Hypertension Kidney stone Sciatica Tension pneumothorax 04/20/2021 Past Surgical History: Past Surgical History: Procedure Laterality Date APPENDECTOMY CHOLECYSTECTOMY HERNIA REPAIR LITHOTRIPSY Family History: Family History Problem Relation Age of Onset Stroke Mother Diabetes Mother Hypertension Mother Social History: Social History Socioeconomic History Marital status: Tobacco Use Smoking status: Never Smokeless tobacco: Never Substance and Sexual Activity Alcohol use: Yes Comment: rare Drug use: No Sexual activity: Defer Partners: Female Other Topics Concern Caffeine Use Yes Social History Narrative Merged History Encounter Social Drivers of Health Financial Resource Strain: Low Risk (04/20/2021) Overall Financial Resource Strain (CARDIA) Difficulty of Paying Living Expenses: Not hard at all Food Insecurity: No Food Insecurity (10/18/2025) Hunger Screening Food Insecurity - Worry: Never True Food Insecurity - Inability: Never True Transportation Needs: No Transportation Needs (04/20/2021) PRAPARE - Transportation Lack of Transportation (Medical): No Lack of Transportation (Non-Medical): No Physical Activity: Sufficiently Active (04/20/2021) Exercise Vital Sign Days of Exercise per Week: 5 days Minutes of Exercise per Session: 60 min Stress: No Stress Concern Present (04/20/2021) [place] [employer] - Occupational Stress Questionnaire Feeling of Stress : Not at all Social Connections: Moderately Isolated (04/20/2021) Social Connection and Isolation Panel Frequency of Communication with Friends and Family: More than three times a week Frequency of Social Gatherings with Friends and Family: More than three times a week Attends Temple Services: Never Active Member of Clubs or Organizations: No Attends Club or Organization Meetings: Never Marital Status: Interpersonal Safety: Unknown (12/16/2023) Received from [facility] Fear of Current or Ex-Partner: Not on file Emotionally Abused: Not on file Physically Abused: Not on file Sexually Abused: Not on file Physically or Sexually Abused: Not on file Review of Systems: Review of Systems Constitutional: Negative for chills and fever. HENT: Negative for ear pain. Eyes: Negative for pain. Respiratory: Negative for shortness of breath. Cardiovascular: Negative for chest pain/discomfort. Gastrointestinal: Negative for abdominal pain, diarrhea, nausea and vomiting. Genitourinary: Negative for flank pain. Musculoskeletal: Positive for back pain. Skin: Negative for rash. Neurological: Negative for headaches. Psychiatric/Behavioral: Negative for sleep disturbance and suicidal ideas. Physical Exam: ED Triage Vitals Temp Pulse Resp BP SpO2 -- -- -- -- -- Temp src Heart Rate Source Patient Position BP Location FiO2 (%) -- -- -- -- -- Vitals: 10/18/252027 BP: (!) 173/106 Temp: 36.6 ??C (97.9 ??F) TempSrc: Oral Pulse: 69 Resp: 14 SpO2: 99% Height: 175.3 cm (5' 9 ) Weight: 74.8 kg (165 lb) Physical Exam Vitals reviewed. HENT: Head: Normocephalic and atraumatic. Eyes: Conjunctiva/sclera: Conjunctivae normal. Cardiovascular: Rate and Rhythm: Normal rate. Pulmonary: Effort: Pulmonary effort is normal. Breath sounds: Normal breath sounds. Abdominal: General: There is no distension. Palpations: Abdomen is soft. Musculoskeletal: General: Normal range of motion. Cervical back: Normal range of motion and neck supple. Lumbar back: Spasms and tenderness present. Skin: General: Skin is warm and dry. Neurological: General: No focal deficit present. Mental Status: He is alert and oriented to person, place, and time. GCS: GCS eye subscore is 4. GCS verbal subscore is 5. GCS motor subscore is 6. Procedure: Procedures Re-evaluation: Patient improvement in symptoms after medications. Patient discharged with a steroid pack, muscle relaxers and Toradol. Encouraged to try stretching and follow up with family doctor. Medical Decision Making Plan of care - medical management of pain including Toradol, Norflex, and Decadron. Patient was already given 50 mics of fentanyl by EMS. Risk Prescription drug management. ED Course: Clinical Impressions as of 10/18/252058 Sciatica, unspecified laterality . ED Disposition ED Disposition Discharge Date/Time Ailyn Oct 18, 2025 8:49 PM Comment At the time of discharge, the plan has been discussed with the patient regarding the diagnosis and prognosis. All questions have been answered. Verbal discharge instructions were discussed with the patient. The patient has been advised to follow up w ith their Primary Care Provider within 1 week. The patient was also instructed to return to the ED if their symptoms change, worsen, new symptoms arise or if they have any additional concerns. Medications Prescribed this Visit Sig methylPREDNISolone (MEDROL, PAVEL,) 4 mg tablet follow package directions orphenadrine (NORFLEX) 100 mg 12 hr tablet Take 1 tablet (100 mg total) by mouth 2 (two) times a day as needed for muscle spasms or pain. ketorolac (TORADOL) 10 mg tablet Take 1 tablet (10 mg total) by mouth every 6 (six) hours as neededfor pain. JOVANNY Supervision Only Supervising Physician was Dr. Rosamaria Carrillo Please note that portions of this note were completed with a voice recognition program. Efforts were made to edit the dictations but occasionally words are mis-transcribed. RACHID Ty 10/18/252028 RACHID Ty 10/18/252058 * Laurence Taylor RN - 10/18/2025 8:27 PM EST Pt to er via ems with c/o playing cashcloud games yesterday and crawling around and now having R sided sciatic pain. Pt states he took his prescribed tramadol at home without relief and motrin with relief. EMS gave 50 mcg IM fentanyl and zofran IM enroute. Pt is alert and oriented during triage, able to move legs without difficulty. documented in this encounter Plan of Treatment Not on file documented as of this encounter Procedures Procedure NamePriorityDate/TimeAssociated DiagnosisCommentsCT LUMBAR SPINE WO TQTXYGYL43/25/2025 9:51 PM EST documented in this encounter Results * CT lumbar spine without contrast (10/18/2025 9:51 PM EST)Anatomical Region LateralityModalityMSK, Neuro, Spine, L-spine, Spine CoveraN/AComputed TomographySpecimen (Source)Anatomical Location / LateralityCollection Method / VolumeCollection TimeReceived Time10/18/2025 10:02 PM EST Narrative 10/18/2025 10:06 PM EST History: Patient with history of right-sided sciatica. Right lower back pain radiating to the hip. Exam/Technique: ??Contiguous axial images are obtained of the CT of the lumbar spine without intravenous contrast. ?Coronal and sagittal reconstructions were performed and reviewed. Automatic dose exposure reduction technique utilized. Comparison: Findings: ?? There is straightening of the lordosis in keeping with muscle spasm. There are multilevel Schmorl'snodes identified in the lower thoracic and upper lumbar spine. Scattered disc osteophytes noted with disc space narrowing particularly at L4-5 level with vacuum phenomenon. Mild facet arthropathy. There is no paraspinous mass or fluid collection. The SI joints demonstrate mild sclerosis which is nonspecific. Specifically: CT is limited for evaluation of sciatica and radiculopathy. L1-L2 and L2-3 demonstrate broad-based disc bulges and flattening of the thecal sac with facet disease but no significant stenosis. L3-4 demonstrates broad-based disc bulge and facet disease without any significant spinal or neuralcanal stenosis. L4-5 level broad-based disc bulge posterior element hypertrophy. Likely an element of significant disc bulging and mild central canal stenosis but no hemanth neural canal stenosis although this may be difficult to evaluate. L5-S1 no significant abnormality. IMPRESSION: ?? Demonstrates significant muscle spasm with mild disc degenerative changes throughout the lumbar spine as well as facet changes. Most significant disc pathology noted at L4-5 level with broad-based disc bulge posterior element hypertrophy and facet disease likely resulting in some degree of spinal canal stenosis. Some degree of lateral recess and neural canal stenosis may be present. This is best evaluated with MRI imaging. All CT scans at this facility use dose modulation, iterative reconstruction, and/or weight based dosing when appropriate to reduce radiation dose to as low as reasonably achievable. Finalized by Jean Carlos Aparicio MD on 10/18/2025 10:06 PM Procedure Note Jean Carlos Aparicio MD - 10/18/2025 History: Patient with history of right-sided sciatica. Right lower backpain radiating to the hip. Exam/Technique: Contiguous axial images are obtained of the CT of thelumbar spine without intravenous contrast. Coronal and sagittalreconstructions were performed and reviewed. Automatic dose exposure reduction technique utilized. Comparison: Findings: There is straightening of the lordosis in keeping with muscle spasm. Thereare multilevel Schmorl's nodes identified in the lower thoracic and upperlumbar spine. Scattered disc osteophytes noted with disc space narrowingparticularly at L4-5 level with vacuum phenomenon. Mild facet arthropathy. There is no paraspinous mass or fluid collection. The SI joints demonstrate mild sclerosis which is nonspecific. Specifically: CT is limited for evaluation of sciatica and radiculopathy. L1-L2 and L2-3 demonstrate broad-based disc bulges and flattening of thethecal sac with facet disease but no significant stenosis. L3-4 demonstrates broad-based disc bulge and facet disease without any significant spinal or neural canal stenosis. L4-5 level broad-based disc bulge posterior element hypertrophy. Likely an element of significant disc bulging and mild central canal stenosis but nofrank neural canal stenosis although this may be difficult to evaluate. L5-S1 no significant abnormality. IMPRESSION: Demonstrates significant muscle spasm with mild disc degenerative changes throughout the lumbar spine as well as facet changes. Most significantdisc pathology noted at L4-5 level with broad-based disc bulge posteriorelement hypertrophy and facet disease likely resulting in some degree ofspinal canal stenosis. Some degree of lateral recess and neural canal stenosismay be present. This is best evaluated with MRI imaging. All CT scans at this facility use dose modulation, iterativereconstruction, and/or weight based dosing when appropriate to reduceradiation dose to as low as reasonably achievable. Finalized by Jean Carlos Aparicio MD on 10/18/2025 10:06 PM Authorizing ProviderResult TypeResult StatusCarl CHRIS CT ORDERABLES Final Result documented in this encounter Visit Diagnoses Diagnosis Sciatica, unspecified laterality- Primary documented in this encounter Administered Medications Medication OrderMAR ActionAction DateDoseRateSite dexAMETHasone sodium phos (PF) (DECADRON) injection 10 mg 10 mg, intramuscular, Once, On Ailyn 10/18/25 at 2027, For 1 dose, May alter blood glucose or insulinrequirements. Look-alike/sound-alike medication - verify indication for use. Given10/18/2025 8:39 PM EST10 mgRight Deltoid ketorolac (TORADOL) injection 60 mg 60 mg, intramuscular, Once, On Ailyn 10/18/25 at 2029, For 1 dose, Look-alike/sound-alike medication - verify indication for use. Duration of therapy is not to exceed 5 days. Maximum recommended dose +120mg/24 hours. Given10/18/2025 8:39 PM EST60 mgLeft Deltoid lidocaine (SALONPAS) 4 % 1 patch 1 patch, transdermal, Administer over 12 Hours, Daily, First dose on Wed10/19/25 at 0900, Apply tointact skin on lumbar. Patch(es) may remain in place for up to 12 hours in any 24-hour period. Remove previous patch, if present, before applying new. Medication Yfomvut6110/18/2025 9:10 PM EST1 patchOther orphenadrine (NORFLEX) injection 60 mg 60 mg, intramuscular, Once, On Ailyn 10/18/25 at 2027, For 1 dose, If ordered IV: give over [address] in supine position during and for 5-10 minutes following injection. Given10/18/2025 8:39 PM EST60 mgLeft Deltoiddocumented in this encounter Active and Recently Administered Medications Times are shown in EST.Medication Order/ dexAMETHasone sodium phos (PF) (DECADRON) injection 10 mg (COMPLETED) 10 mg, intramuscular, Once, On Ailyn 10/18/25 at 2027, For 1 dose, May alter blood glucose or insulinrequirements. Look-alike/sound-alike medication - verify indication for use. * 2038 (Given - Provider: Laurence Taylor RN) ketorolac (TORADOL) injection 60 mg (COMPLETED) 60 mg, intramuscular, Once, On Ailyn 10/18/25 at 2030, For 1 dose, Look-alike/sound-alike medication - verify indication for use. Duration of therapy is not to exceed 5 days. Maximum recommended dose +120mg/24 hours. * 2038 (Given - Provider: Laurence Taylor RN) lidocaine (SALONPAS) 4 % 1 patch 1 patch, transdermal, Administer over 12 Hours, Daily, First dose on Wed10/19/25 at 0900, Apply tointact skin on lumbar. Patch(es) may remain in place for up to 12 hours in any 24-hour period. Remove previous patch, if present, before applying new. * 2109 (Medication Applied - Provider: Laurence Taylor RN - Comment: back) orphenadrine (NORFLEX) injection 60 mg (COMPLETED) 60 mg, intramuscular, Once, On Ailyn 10/18/25 at 2027, For 1 dose, If ordered IV: give over [address] patient in supine position during and for 5-10 minutes following injection. * 2038 (Given - Provider: Laurence Taylor RN) documented in this encounter Additional Health Concerns AssessmentNoted TimePHQ-9 Depression Total Score: 10:49 AM EDT documented as of this encounter Care Teams Team MemberRelationshipSpecialtyStart DateEnd Date Jose Sharp MD [address] [facility], [facility] [address] [place] [phone] PCP - GeneralInternal Medicine04/19/21documented as of this encounter
[2025-10-20 11:41] VITALS: BP 116/72; PULSE 66; TEMP 36.8; O2SAT 96; BMI 24.4
--- OUTSIDE RECORDS SUMMARY | 2025-10-20 12:07 | XMS_ITS | Clinical Summary ---
Author Organization [employer] tem Address [id number] [address] [place] [address] Care Team Providers Care Turner In Name Role Phone Jose Sharp MD Primary Care Provider [phone] Allergies No known active allergies Medications MedicationSigDispense [...] mouth as needed for high blood pressure.Active methylPREDNISolone (MEDROL, PAVEL,) 4 mg tablet follow package directions 21 tablet 5Active orphenadrine (NORFLEX) 100 mg 12 hr tablet Take 1 tablet (100 mg total) by mouth 2 (two) times a day as needed for muscle spasms or pain. 14 tablet 5Active ketorolac (TORADOL) 10 mg tablet Take 1 tablet (10 mg total) by mouth every 6 (six) hours as needed for pain. 20 tablet 5Active Active Problems ProblemNoted DateDiagnosed DateHypertensive pzgjhpe7206/07/2021Tension yiaktvqotuou88/27/2021 Encounters DateTypeDepartmentCare LulzYkdllltushx47/25/2025 8:25 PM EST - 10/18/2025 10:[address] [facility] [address] [place] [address] Carl Carrillo MD Sciatica, unspecified laterality (Primary Dx) Discharge Disposition: Home10/18/2025Travelfrom Last 3 Months Immunizations No known immunizations Family History Medical [...] times a week04/20/2021How often do you attend confucianist or islam services?Never1Do you belong to any clubs or organizations such as confucianist groups, unions, fraternal or athletic groups, or school groups?No04/20/2021How often do you attend meetings of the clubs or organizations you belong to?Never1Are you , , , , never , or living with a partner?Icxydjj9404/20/2021UDIT-C AnswerDate RecordedQ1: How often do you have [...] care, and heating?Not hard at all04/20/2021HQ-2AnswerDate RecordedTotal Abifg845[facility] [place] of Occupational Health - Occupational Stress QuestionnaireAnswerDate [...] for daily living?No04/20/2021 ChildcareAnswerDate RecordedDo problems 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 [...] True10/18/2025Purpose - LifeAnswerDate RecordedPurpose and direction in fmngPdansgu55/11/2021ex and Gender InformationValueDate Recorded Sex Assigned at BirthNot on fileLegal WctCtju3104/19/2021 5:57 PM EDTGender IdentityNot on fileSexual OrientationNot on file Last Filed Vital Signs Vital SignReadingTime TakenCommentsBlood Dqhirnlv052/6610/18/2025 9:23 PM EST Tlcum590510/18/2025 10:00 PM BZBImwafcgmlvm21.6 ??C (97.9 ??F)10/18/2025 8:28 PM ESTRespiratory Lsfn776612/19/2024 10:00 PM ESTOxygen Hinppmacoa59%10/18/2025 10:00 PM ESTInhaled Oxygen Concentration--Pjfepy68.8 kg (165 lb)10/18/2025 8:28 PM EST Xhlcoy358.3 cm (5' 9 )10/18/2025 8:28 PM ESTBody Mass Index24.37112/19/2024 8:28 PM EST Plan of Treatment Health MaintenanceDue DateLast DoneCommentsDepression Ghqnvsack98/16/1988 DTaP,Tdap and Td Vaccines (1 - Tdap)1995Influenza Gaqanup0606/25/2025dult BMI Tnfkywjna61Tobacco Mgwdjmxox94 Medical Devices Not on file Procedures Procedure NamePriorityDate/TimeAssociated DiagnosisCommentsCT LUMBAR SPINE WO UYKPBNQJ31/25/2025 9:51 PM EST from Last 3 Months Results * CT lumbar spine without contrast [...] 10/18/2025 10:06 PM Authorizing ProviderResult TypeResult StatusCarl Carrillo MDIMLoyda CT ORDERABLES Final Result from Last 3 Months Insurance Advance Directives * Full Code (Latest Code Status on File) Date ActivatedDate InactivatedComments06/07/2021 12:05 PM06/07/2021 3:40 PM * Full Code Date ActivatedDate InactivatedComments04/20/2021 12:58 AM04/26/2021 9:26 PM Care Teams Team MemberRelationshipSpecialtyStart DateEnd Date Jose Sharp MD [address] [place] [address] [address] [place] [address] PCP - GeneralInternal Medicine04/19/21
--- OUTSIDE RECORDS SUMMARY | 2025-10-20 12:07 | XMS_ITS | Clinical Summary ---
Author Organization [facility] Address [address], [address] [place] [address] Care Team Providers Care Child Care Aide Name Role Phone Jose Sharp MD Primary Care Provider [phone] Allergies No known active allergies Social History Tobacco UseTypesPacks/DayYears UsedDateSmoking Tobacco: NeverSex and Gender InformationValueDate RecordedSex Assigned at BirthNot on fileLegal SexMale 06/25/2021 10:27 PM EDTGender IdentityNot on fileSexual OrientationNot on file Last Filed Vital Signs Vital SignReadingTime TakenCommentsBlood Cvmmrgzo530/7309 1:00 AM EDT Rsbzx2597 1:00 AM YWVCfepmfsvlxx27.1 ??C (97 ??F)06/25/2021 10:37 PM EDT Respiratory Ofdj6189 1:00 AM EDTOxygen Begqhbgobu88%06/26/2021 1:00 AM EDTInhaled Oxygen Concentration--Weight--Height--Body Mass Index-- Plan of Treatment Not on file Insurance Care Teams Team MemberRelationshipSpecialtyStart DateEnd Date Jose Sharp MD 112 [facility] [address] [place] [address] PCP - GeneralInternal Medicine06/26/21
--- OUTSIDE RECORDS SUMMARY | 2025-10-20 12:07 | XMS_ITS | Clinical Summary ---
Author Organization [facility] Address [address] [place] [address] Care Team Providers Care Dough Scaler And Mixer Name Role Phone Unavailable Primary Care Provider Unavailabl e Social History Tobacco UseTypesPacks/DayYears UsedDateSmoking Tobacco: Never AssessedUT Safety & EnvironmentAnswerDate RecordedFear of Current or Ex-PartnerNot on file 12/16/2023Emotionally AbusedNot on file12/16/2023hysically AbusedNot on file 12/16/2023Sexually AbusedNot on file4Physically or Sexually AbusedNot on file12/16/2023Sex and Gender InformationValueDate RecordedSex Assigned at BirthNot on fileLegal IjyKgzu2604/23/2022 12:38 AM EDTGender IdentityNot on file Sexual OrientationNot on file Plan of Treatment Health MaintenanceDue DateLast DoneCommentsCT Qstejgsvwxba1976Colonoscopy 1976Colorectal Cancer Phfttqgiw1976FIT-DNA1976FIT1976 FOBT1976 9447Sugzfekkbkqjv1976Depression Azoaawtta72/16/1988Hepatitis B Vaccines (1 of 3 - 19+ 3-dose series)1995Adult Slckbli4007/10/1998Influenza Vaccine (#1)2025Zoster Vaccines (1 of 2)2026HIB VaccinesAged [...]
--- OUTSIDE RECORDS SUMMARY | 2025-10-20 12:07 | XMS_ITS | Clinical Summary ---
Author Organization [facility] Address [address] [place] [address] Care Team Providers Care Tin Pourer Name Role Phone Jose Sharp MD Unavailable [phone] Jose Sharp MD Primary Care Provider [phone] Allergies No known active allergies Medications MedicationSigDispense [...] 08/18/2024cute right-sided low back pain with right-sided oiqoohej99/24/2023 Anxiety about ibgqhl8806/17/2023trial septal defect within oval fossa (HHS-HCC) 06/17/2023ell's palsy06/17/2023Headache, ghvjklcronx12/24/2023 Ntndvcfxlqfjxpmxcmef57/24/8476Xzdmkczdlutqmr49/24/2023Impaired fasting glucose 06/17/2023Internal xmtzcryipza84/24/3351Wqrdldsjpktu74/24/9779Pviqvfhx29/24/2023 Migraine without aura and without status migrainosus, not vsilgkfhieh39/24/2023 Dtizmbczrhbmtpw36/24/2023OSA (obstructive sleep apnea)06/17/2023Other chronic pain06/17/2023anic kjwpaftc26/24/2023eripheral vascular rvjfvry1906/17/2023ost- viral ikbnckpq74/24/2023Sequelae of other specified infectious and parasitic mqaypcgj17/24/2023Steatosis, liver06/17/2023White matter hyxmmqr3606/17/2023 Essential dcogplbotmpa24/23/2023Tension lpmfzqvcywmr09/27/2021 Resolved Problems ProblemNoted DateDiagnosed DateResolved DateHypertensive rukswvu6106/07/2021 08/04/2024 Encounters DateTypeDepartmentCare GlduBdxmvfmujmx41/07/2025linisync Result Encounter [facility] External Department Unsolicited Provider, Generic External Data 08/03/2025 11:00 AM EDTTreatment [facility] [address] [facility] [address] [place] [address] Maci Pike, PT Low back pain, unspecified back pain laterality, unspecified chronicity, unspecified whether sciatica present (Primary Dx)08/03/2025amboo flowsheet [facility] [address] [facility] [address] [place] [address] Maci Pike, PT 08/03/20258453Gjpcyr57/30/2025Telephone [facility] [address] [facility] [address] [place] [address] Horacio Lewis MD 07/23/2025Refill [facility] [address] [facility] [address] [place] [address] Jose Sharp MD Anxiety; Anxiety about yllcvu1007/23/2025bstract [facility] [address] [facility] [address] [place] [phone] Jose Sharp MD from Last 3 Months Family History Medical HistoryRelationNameCommentsHypertensionMotherStrokeMotherRelationName StatusCommentsFatherDeceasedMotherDeceased Social History Tobacco UseTypesPacks/DayYears UsedDateSmoking Tobacco: NeverSmokeless Tobacco: Never Tobacco Cessation:Counseling Given: Not Answered Alcohol UseStandard Drinks/WeekCommentsNot Currently0 (1 standard drink = 0.6 oz pure alcohol)caffeine: sodaPHQ-2AnswerDate RecordedPatient Health Questionnaire- 2 Drjqu238Sex and Gender InformationValueDate RecordedSex Assigned at BirthNot on fileLegal BprVkjk3901/06/2023 7:12 PM EDTGender IdentityNot on file Sexual OrientationNot on file Last Filed Vital Signs Vital SignReadingTime TakenCommentsBlood Cpamuote025/7209 9:49 AM EDT Dnypg6614 9:49 AM EDTTemperature--Respiratory Psam0147 11:30 AM EDTOxygen Ulheiaqfwu36%07/20/2025 9:49 AM EDTInhaled Oxygen Concentration-- Oylyhg65.1 kg (170 lb)07/20/2025 9:49 AM IUQPbfocr687.3 cm (5' 9 )07/20/2025 9:49 AM EDTBody Mass Index25. 9:49 AM EDT Plan of Treatment DateTypeDepartmentCare Team (Latest Contact Info)Bjyizgwrbed72/20/2026 10:15 AM EDTOffice Visit [facility] [address] [facility] [address] [place] [phone] Jose Sharp MD [address] [facility] [address] [place] [address] Health MaintenanceDue DateLast DoneCommentsCT Iqcoxfjrwdfb1976FIT-DNA 1976FIT1976FOBT1976 6593Lgpalpyhuhdpy1976Pneumococcal Vaccine: Pediatrics (0 to 5 Years) and At-Risk Patients (6 to 64 Years) (1 of 2 - PCV)1995Influenza Vaccine (#1)4675Vrkrylhjirc65/03/42777610/27/2022, 3Colorectal Cancer Zaqivnfzm62/03/2033 Procedures Procedure NamePriorityDate/TimeAssociated DiagnosisCommentsXR ABDOMEN 1V 08/31/2025 10:47 AM EST HM DLRDTSRHYXYYgnldgd24/03/2023from Last 3 Months or Most Recently Relevant to Health Maintenance Results * XR ABDOMEN 1V (08/31/2025 10:47 AM EST)Anatomical RegionLateralityModality OtherSpecimen (Source)Anatomical Location / LateralityCollection Method / VolumeCollection TimeReceived Time08/31/2025 10:47 AM EST Narrative 08/31/2025 10:49 AM EST [facility] ?[address] ? [place] [address] ?XRay Report ? Signed ? Patient: PAUL MENESES ?MR#: [id number] ?? : 1975 ?Acct:[id number] ?? Age/Sex: 50 / M ?ADM Date: 08/31/25 ?? Loc: RAD ? Attending Dr: Mamadou Ibarra M.D. ? Ordering Physician: Mamadou Ibarra M.D. ?? Date of Service: 08/31/25 ?? Procedure(s): XR abdomen 1V ?? Accession Number(s): [id number] ? cc: JOSE SHARP ; Mamadou Ibarra M.D. ? [facility] ? [address] ? [place] [address] ? Patient Name: ?? PAUL ??DEVIN GAMBLE ? MRN: [facility]:[id number] ? date: 1975 ?Sex: M ?? Assigned Patient Location: RAD ?? Current Patient Location: RAD ?? Accession/Order Number: [id number] ?? Exam Date: 08/31/2025 ??10:15 ?Report Date: 08/31/2025 ??10:47 ? At the request of: ?? MAMADOU ??IBARRA ??MD ? Procedure: ??XR abdomen 1V ? SINGLE VIEW ABDOMEN ? COMPARISON: 03/08/2025 ? CLINICAL DATA: Follow-up of kidney stones. ? Supine views of the abdomen and pelvis were obtained. ??There is air and stool ?? within the colon from the cecum through the splenic flexure. ??There are no ?? dilated small bowel loops. ??The kidneys are partially obscured. ??The ?? radiopaque stone seen at the left kidney at the time of the prior is no longer ?? identified. ??No new renal or ureteral stones are noted. ??There are no soft ?? tissue masses. ??There is subtle levoscoliotic curvature and mild degenerative ?? change at the spine. ? XR/XR abdomen 1V ?? IMPRESSION: ? NO RESIDUAL RADIOPAQUE STONES. ? Impression dictated by: Ashley Gonzalez M.D. ??08/31/2025 10:47 AM ? Dictation Location: RADIO--02 ? Electronically authenticated by: [id number] ??Y ?? Date: 08/31/2025 ??10:47 ? Dictated By: ?Ashley Gonzalez M.D. ? Signed By: ?08/31/25 1049 ? DD/ 1047 ? TD/TT: ? Executive Chairman: Procedure Note Radiology, Radiologist, - 08/31/[address] [address] XRay Report Signed Patient: PAUL MENESESMR#: [id number] : 1975Acct:[id number] Age/Sex: 50 / MADM Date: 08/31/25 Loc: [facility] Attending Dr: Mamadou Ibarra M.D. Ordering Physician: Mamadou Ibarra M.D. Date of Service: 08/31/25 Procedure(s): XR abdomen 1V Accession Number(s): [id number] cc: JOSE SHARP ; Mamadou Ibarra M.D. The [address] [address] Patient Name: PAUL GAMBLE MRN: [id number] date: 1975 Sex: M Assigned Patient Location: RAD Current Patient Location: RAD Accession/Order Number: [id number] Exam Date: 08/31/2025 10:15 Report Date: 08/31/2025 10:47 At the request of: MAMADOU IBARRA MD Procedure: XR abdomen 1V SINGLE VIEW ABDOMEN COMPARISON: 03/08/2025 CLINICAL DATA: Follow-up of kidney stones. Supine views of the abdomen and pelvis were obtained. There is air andstool within the colon from the cecum through the splenic flexure. There are no dilated small bowel loops. The kidneys are partially obscured. The radiopaque stone seen at the left kidney at the time of the prior is nolonger identified. No new renal or ureteral stones are noted. There are no soft tissue masses. There is subtle levoscoliotic curvature and milddegenerative change at the spine. XR/XR abdomen 1V IMPRESSION: NO RESIDUAL RADIOPAQUE STONES. Impression dictated by: Ashley Gonzalez M.D. 08/31/2025 10:47 AM Dictation Location: [place] [address] Electronically authenticated by: [id number] Y Date: 0:47 Dictated By: Ashley Gonzalez M.D. Signed By:08/31/25 1049 DD/ 1047 TD/TT: Executive Chairman: Authorizing ProviderResult TypeResult StatusGeneric External Data Provider CLINISYNC IMAGINGFinal Result * (ABNORMAL) Colonoscopy (08/27/2023)Anatomical RegionLateralityModalityOther Specimen (Source)Anatomical Location / LateralityCollection Method / Volume Collection TimeReceived Time08/27/2023 Narrative Authorizing ProviderResult TypeResult StatusDairis Sharp MDHEALTH MAINTENANCE Final Result from Last 3 Months or Most Recently Relevant to Health Maintenance Insurance Care Teams Team MemberRelationshipSpecialtyStart DateEnd Jose Sharp MD [address] [facility] [address] [place] [address] PCP - Wellford Edel01/23/21 Jose Sharp MD [address] [facility] [address] [place] [address] [address] - [address] [facility]03/02/23
--- OUTSIDE RECORDS SUMMARY | 2025-10-20 12:07 | XMS_ITS | Encounter Summary ---
Author Organization [employer] tem Address [facility] [address] [place] [address] Care Team Providers Care Tower Erector Helper Name Role Phone Jose Sharp MD Primary Care Provider [phone] Encounter Details DateTypeDepartmentCare Team (Latest Contact Info)Hvsvyjpzjqp15/25/2025Travel Social History Tobacco UseTypesPacks/DayYears UsedDateSmoking Tobacco: NeverSmokeless [...] times a week04/20/2021How often do you attend lutheran or jain services?Never1Do you belong to any clubs or organizations such as lutheran groups, unions, fraternal or athletic groups, or school groups?No04/20/2021How often do you attend meetings of the clubs or organizations you belong to?Never04/20/2021re you , , , , never , or living with a partner?Xavssvm4204/20/2021UDIT-C AnswerDate RecordedQ1: How often do you have [...] care, and heating?Not hard at all04/20/2021HQ-2AnswerDate RecordedTotal Nbfug510Finhuntsman mental health institute [place] of Occupational Health - Occupational Stress QuestionnaireAnswerDate [...] daily living?No04/20/2021 ChildcareAnswerDate RecordedDo problems getting child study 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 make it difficult for you to [...] True10/18/2025Purpose - LifeAnswerDate RecordedPurpose and direction in okrhBywntcm45/11/2021ex and Gender InformationValueDate Recorded Sex Assigned at BirthNot on fileLegal PonCpat1804/19/2021 5:57 PM EDTGender IdentityNot on fileSexual OrientationNot on filedocumented as of this encounter Plan of Treatment Not on file documented as of this encounter Visit Diagnoses Not on filedocumented in this encounter Additional Health Concerns AssessmentNoted TimePHQ-9 Depression Total Score: 10:49 AM EDT documented as of this encounter Care Teams Team MemberRelationshipSpecialtyStart DateEnd Date Jose Sharp MD 112 [facility] [address] [place] [phone] PCP - GeneralInternal Medicine04/19/21documented as of this encounter
[2025-10-20] MEDS: HYDROCODONE/ACET 5-325 MG TABLET 1 TAB PO (12:27)
--- NOTE | 2025-10-20 16:02 | ED.GENADUL1 ---
HPI HPI - General Adult General Chief complaint: Back Pain/Injury Stated complaint: LOWER BACK PAIN & R LEG PAIN/NUMBNESS Time Seen by Provider: 10/20/25 11:43 Source: patient and family Mode of arrival: walk-in Limitations: no limitations History of Present Illness HPI narrative: Patient is a 50-year-old male presenting to the emergency department for evaluation of low back pain. On , the patient had an injury of his lower back after awkwardly picking up [employer]. He was seen at an outside emergency department at that time. X-rays were obtained, and they state it showed multiple bulging disks . He was given oral ketorolac, methylprednisolone, and orphenadrine for symptoms and instructed to follow-up with orthopedic surgery. Since that injury, the patient states his symptoms have improved, however he still experiencing some pain. He states the pain is located in his lower back and radiates down his legs, mostly on the right side. States he has some numbness on the right anterior thigh, but no other sensory deficits to the lower extremity. No weakness in lower extremities. No loss of bladder/bowel function. States has a history of chronic low back pain similar to this, and is currently in PT for it. No interval injuries. He is otherwise healthy with no chronic medical conditions. Related Data Home Medications ?Medication ?Instructions ?Recorded ?Confirmed aspirin 81 mg chewable tablet 1 tab PO DAILY 03/02/25 10/20/25 atorvastatin 40 mg tablet 40 mg PO DAILY 03/02/25 10/20/25 meloxicam 15 mg tablet 15 mg PO DAILY 03/02/25 10/20/25 metoprolol tartrate 100 1 tab PO DAILY 03/02/25 10/20/25 mg-hydrochlorothiazide 25 mg tablet potassium bicarbonate-citric acid 25 meq PO BID 03/02/25 10/20/25 25 mEq effervescent tablet (Effer-K) ketorolac 10 mg tablet 10 mg PO Q6H PRN pain 10/20/25 10/20/25 methylprednisolone 4 mg tablets in mg 10/20/25 a dose pack orphenadrine citrate 100 mg 100 mg PO Q12H PRN muscle spasm 10/20/25 10/20/25 tablet,extended release Previous Rx's ?Medication ?Instructions ?Recorded oxycodone-acetaminophen 5 mg-325 1 tab PO Q8H PRN pain 4 days #12 10/20/25 mg tablet tabs Allergies Allergy/AdvReac Type Severity Reaction Status Date / Time No Known Drug Allergies Allergy Verified 10/20/25 11:47 Opioid HPI Opioid Management Most Recent Opioid Data: Last DEC Pain Assessment Today, 12:27 Review of Systems ROS Status of ROS 10 or more systems reviewed and unremarkable except as noted in history and below PFSH PFSH Medical History (Updated 10/20/25 @ 12:04 by Joaquín Root DO) Tension pneumothorax (~2020) ?J93.0 - Spontaneous tension pneumothorax (ICD-10) Foot pain ?M79.673 - Pain in unspecified foot (ICD-10) Arthritis ?M19.90 - Unspecified osteoarthritis, unspecified site (ICD-10) Anxiety ?F41.9 - Anxiety disorder, unspecified (ICD-10) Migraine (1994) ?G43.909 - Migraine, unspecified, not intractable, without status migrainosus (ICD-10) Heartburn ?R12 - Heartburn (ICD-10) Hypertension (~2020) ?I10 - Essential (primary) hypertension (ICD-10) High cholesterol ?E78.00 - Pure hypercholesterolemia, unspecified (ICD-10) COVID-19 (2020) ?U07.1 - COVID-19 (ICD-10) Kidney stones ?N20.0 - Calculus of kidney (ICD-10) Surgical History (Updated 03/02/25 @ 11:25 by María Elena Harris NP) History of hernia repair (1998) ?Z98.890 - Other specified postprocedural states (ICD-10) ?Z87.19 - Personal history of other diseases of the digestive system (ICD-10) H/O chest tube placement (2020) ?Z98.890 - Other specified postprocedural states (ICD-10) History of colonoscopy ?Z98.890 - Other specified postprocedural states (ICD-10) S/P ureteral stent placement ?Z96.0 - Presence of urogenital implants (ICD-10) S/P cystoscopy ?Z98.890 - Other specified postprocedural states (ICD-10) History of cholecystectomy ?Z90.49 - Acquired absence of other specified parts of digestive tract (ICD-10) History of appendectomy ?Z90.49 - Acquired absence of other specified parts of digestive tract (ICD-10) Family History (Updated 03/02/25 @ 11:11 by María Elena Harris NP) Other Family history of diabetes mellitus Family history of hypertension Family history of stroke Social History (Updated 03/02/25 @ 11:03 by María Elena Harris NP) Within the past year, how often did you have a drink containing alcohol: never Score interpretation: A score less than 4 is consistent with normal alcohol consumption. Smoking status: Never smoker Non-prescribed substance use: denies use Previous occupational history: [employer] Highest level of school completed/degree received: high school graduate Little interest or pleasure in doing things: not at all Feeling down, depressed, or hopeless: not at all Exam Narrative Exam Narrative: CONSTITUTIONAL: Well-appearing, answering questions and following commands appropriately SKIN: Was warm and dry, no rashes on the back or lower extremities. EYES: Sclerae white. EARS, NOSE, THROAT: Moist oral mucosa. RESPIRATORY: Nonlabored respirations. CARDIOVASCULAR: Normal rate and regular rhythm. There is no S3, S4, murmur, rub. 2+ DP pulses bilaterally GASTROINTESTINAL: Abdomen is nondistended. MUSCULOSKELETAL: There is no midline L-spine tenderness. Full range of motion in the bilateral lower extremities. Ambulates with a mildly antalgic gait, but is able to do so unassisted. NEUROLOGIC: Patient is awake and alert. 5/5 strength with bilateral hip flexion/extension, knee flexion/extension, ankle plantar/dorsiflexion, and flexion/extension of the great toe. Intact sensation to light touch in the bilateral lower extremities from the inner part of the thigh to the feet. Constitutional Vital Signs, click to edit/add: Last Vital Signs Temp 98.2 F 10/20/25 11:41 Pulse 66 10/20/25 11:41 Resp 16 10/20/25 11:41 BP 116/72 10/20/25 11:41 Pulse Ox 96 10/20/25 11:41 O2 Del Method Room Air 10/20/25 11:41 Course Vital Signs Vital signs: Vital Signs Temperature 98.2 F 10/20/25 11:41 Pulse Rate 66 10/20/25 11:41 Respiratory Rate 16 10/20/25 11:41 Blood Pressure 116/72 10/20/25 11:41 Pulse Oximetry 96 10/20/25 11:41 Oxygen Delivery Method Room Air 10/20/25 11:41 Temperature 98.2 F 10/20/25 11:41 Pulse Rate 66 10/20/25 11:41 Respiratory Rate 16 10/20/25 11:41 Blood Pressure 116/72 10/20/25 11:41 Pulse Oximetry 96 10/20/25 11:41 Oxygen Delivery Method Room Air 10/20/25 11:41 Medical Decision Making MDM Narrative Medical decision making narrative: My clinical impression of the patient's back pain is musculoskeletal in nature, possibly related to lumbar radiculopathy. His symptoms have significantly improved since the initial injury a few days ago. No findings that would be suggestive of cauda equina syndrome. No history of IV drug use, fevers, midline vertebral tenderness to suggest spinal epidural abscess. No interval injuries since his last x-rays to suggest new fractures or dislocations. I do believe the patient is stable for discharge. Patient's presentation is most likely consistent with lumbar to colopathy, musculoskeletal pain. They were instructed to follow up with orthopedic surgery for further care. Return precautions were given including any new or worsening symptoms, including loss of bladder/bowel function, weakness, or loss of sensation in the lower extremities. They were given a prescription for [place] 5 mg x 12 tablets. Patient understands and agrees to the plan. FINAL IMPRESSION: #Acute lumbar radiculopathy DISPOSITION: Discharged home CONDITION: Good Discharge Plan Discharge Chief Complaint: Back Pain/Injury Clinical Impression: Lumbar radiculopathy Patient Disposition: Home, Self-Care Time of Disposition Decision: 12:04 Condition: Good Mode of Transportation: Private Vehicle Prescriptions / Home Meds: New oxycodone-acetaminophen 5-325 mg tablet 1 tab PO Q8H PRN (Reason: pain) 4 Days Qty: 12 0RF No Action atorvastatin 40 mg tablet 40 mg PO DAILY meloxicam 15 mg tablet 15 mg PO DAILY metoprolol ta-hydrochlorothiaz 100-25 mg tablet 1 tab PO DAILY aspirin 81 mg tablet,chewable 1 tab PO DAILY Effer-K 25 mEq tablet, effervescent 25 meq PO BID ketorolac 10 mg tablet 10 mg PO Q6H PRN (Reason: pain) methylprednisolone 4 mg tablets,dose pack orphenadrine citrate 100 mg tablet extended release 100 mg PO Q12H PRN (Reason: muscle spasm) Print Language: Romanian Instructions: Lumbar Radiculopathy (ED) Referrals: ABBIE HOLMAN [Primary Care Provider, Internal Medicine] - 1 week Discharge Date/Time: 10/20/25 13:08
== END 2025-10-20 13:08 | disposition home or self-care (01) ==
PROVIDERS: Emergency Provider Student in an Organized Health Care Education/Training Program; PCP Internal Medicine
DX: M54.16 Radiculopathy, lumbar region (principal); M54.50 Low back pain, unspecified
CPT/HCPCS: 99283